=== PATIENT | female | born 1955 | race Caucasian/White ===

== ENCOUNTER → 2016-12-01 | Outpatient (CLI) | payer BC ==
[~2016-12-01] MED LIST: ASPI81TA85 PO; BETA10003 PO; CALTTAB5 PO; CVS20TAB PO; GLUC1CAP9 PO; HYDR25TAB PO; IBUP-1022 PO; ISOVUE-370 76% 100ML VIAL (Q9967) As Ordered ONE; LEVO137T2 PO; LISI-538 PO; MOME50SP; MONT10TA2 PO; MULTTAB PO; NATU400T PO; OMEG100011 PO; SUCR1TA PO; VALT1TAB PO; VESI10TA2 PO
--- NOTE | 2016-12-01 14:37 | REP ---
CT NECK WITHOUT AND WITH CONTRAST: HISTORY: Neck swelling. CONTRAST: Isovue 370, 75 mL. The naso-, jose cruz-, and hypopharynx, larynx and subglottic trachea are normal in appearance. The salivary and thyroid glands are normal in size and density. Small lymph nodes less than 1 cm in size are present in the internal jugular chains, posterior triangles, submandibular and submental areas. Atherosclerotic calcification is present at the left carotid bifurcation. Degenerative change is present in the cervical spine. A congenital block vertebra is present at the C2-3 level. The lung apices are clear. The visualized sinuses are clear. IMPRESSION: There is no neck mass or adenopathy. Signed by Richard Sepulveda MD 12/01/2016 02:39 P
== END ==
LOC: M RAD 13:42
PROVIDERS: ATTEND Otolaryngology
DX: R22.0 Localized swelling, mass and lump, head (principal)
CPT/HCPCS: 70492; Q9967

== ENCOUNTER → 2017-08-09 | Outpatient (CLI) | payer BC | LOC: M RAD 09:05 | DX: Z12.31 Encounter for screening mammogram for malignant neoplasm of breast (principal); Z78.0 Asymptomatic menopausal state; Z92.0 Personal history of contraception | CPT/HCPCS: 77067 ==

== ENCOUNTER → 2018-10-01 | Outpatient (CLI) | payer BC ==
[~2018-10-01] MED LIST changes: -CVS20TAB PO; -ISOVUE-370 76% 100ML VIAL (Q9967) As Ordered ONE; +OMEP20TA9 PO
--- NOTE | 2018-10-01 10:17 | REP ---
BILATERAL SCREENING DIGITAL MAMMOGRAM WITH 3D TOMOSYNTHESIS: There are no palpable abnormalities or other breast complaints. The the patient states she had a clinical breast examination September/2018. The Tyrer-Cuzick Score is: 5.6% . Comparisons are 12/05/2013 and 08/09/2017. There are scattered areas of fibroglandular density. There is no dominant mass, micro calcific cluster or architectural distortion that would indicate malignancy. There are no additional findings on 3D tomosynthesiss. There is no change from the prior study. Impression: BIRADS/ACR category 1 mammogram. Negative. Recommendation: Routine annual screening mammography. This mammogram was interpreted with the aid of a FDA approved computer-aided detection system. A. Negative mammogram reports should not delay biopsy if a dominant or clinically suspicious mass is present. B. Not all breast cancers are identified by mammography or tomosynthesis. C. Adenosis and dense breasts may obscure an underlying neoplasm. Patient letter M1. Electronically Signed by Michael Seo MD 10/01/2018 10:09 A
== END ==
LOC: M RAD 08:31
DX: Z12.31 Encounter for screening mammogram for malignant neoplasm of breast (principal)

== ENCOUNTER → 2019-10-15 | Outpatient (CLI) | payer BC ==
[~2019-10-15] MED LIST changes: -ASPI81TA85 PO; +ASPI81TA86 PO; -MONT10TA2 PO; +MONT10TA4 PO
--- NOTE | 2019-10-31 11:46 | REPMRS ---
Patient History The patient states she had a clinical breast exam in 10/2019. Patient is postmenopausal. Family history of unknown cancer in paternal uncle. Took hormonal contraceptives for 10 years. Digital Woman Screen Mammo: October 15, 2019 - Exam #: [id number] Bilateral CC and MLO view(s) were taken. Technologist: Laura Ferraro, Technologist Prior study comparison: October 01, 2018, bilateral digital mammo screening bilat, performed at [facility]. August 09, 2017, bilateral digital mammo screening bilat, performed at [facility]. February 23, 2016, bilateral digital mammo screening bilat, performed at [facility]. FINDINGS: The breast tissue is almost entirely fat. There has been no change in the appearance of the mammogram from the prior studies. There is no interval development of dominant mass, architectural distortion, or grouped microcalcification typical of malignancy. 3-D tomosynthesis shows no additional findings. Report was delayed due to a protracted computer network disruption experienced by this facility. Assessment: BI-RADS/ACR category 1 mammogram. Negative Mammogram. Recommendation Routine screening mammogram of both breasts in 1 year (for women over age 40). This patient's Lifetime Breast Cancer RIsk is estimated at 5.3 %. This mammogram was interpreted with the aid of an FDA-approved computer-aided dectection system. Electronically Signed By: Gokul Fair MD 10/31/19 [id number]
--- NOTE | 2019-11-25 15:02 | DEXA ---
AP SPINE L1 - L4 1.394 1.8 3.4 LT FEMUR TOTAL 0.868 -1.1 0.1 LT NECK 0.846 -1.7 0.1 RT FEMUR TOTAL 0.874 -1.1 0.1 RT NECK 0.733 -2.2 -0.7 TOTAL BODY TOTAL OTHER COMMENTS: Normal bone densitometry of the spine. There is low bone density of the hips. The increased density of the spine does represent significant change. The decreased density of the left hip does represent a significant change. The decreased density of the right hip does represent a significant change. The density of the spine has increased 13.7% since the initial exam on 10/30/2007. The increased 10.8% since the most recent exam on 11/26/2013. The density of the left hip has decreased 22.6% since the initial exam on 10/30/2007. The density of the left hip has decreased 17.6% since the most recent exam on 11/22/2013. The density of the right hip has decreased 13.8% since the initial exam on 10/30/2007. The density of the right hip has decreased 12.8% since the most recent exam on 11/22/2013. FOLLOW-UP: Recommendation for the next bone density exam: 2 years. JACKELIN
== END ==
LOC: M WHC 16:59
PROVIDERS: ATTEND Nurse Practitioner Adult Health
DX: Z12.31 Encounter for screening mammogram for malignant neoplasm of breast (principal); M85.851 Other specified disorders of bone density and structure, right thigh; M85.852 Other specified disorders of bone density and structure, left thigh; Z78.0 Asymptomatic menopausal state

== ENCOUNTER → 2020-11-03 | Outpatient (CLI) | payer BC ==
[~2020-11-03] MED LIST changes: +HYDR-3490 PO; -HYDR25TAB PO; -LISI-538 PO; +LISI20TA33 PO; +MONT10TA10 PO; -MONT10TA4 PO; +OMEP20TA2 PO; -OMEP20TA9 PO
--- NOTE | 2020-11-03 10:04 | REPMRS ---
Patient History The patient states she has not had a clinical breast exam in over a year. Family history of unknown cancer in paternal uncle. Took hormonal contraceptives for 10 years. No breast complaints today Patient signed the MRS sheet 1st covid vaccine 04/08/20-right arm-Moderna 2nd covid vaccine 05/04/20-right arm Patient states she has gained at least 20lbs in the last year Priors on PACS Patient Identification Verified Digital Woman Screen Mammo: November 03, 2020 - Exam #: [id number] Bilateral CC and MLO view(s) were taken. Technologist: Laura Ferraro Technologist Prior study comparison: October 15, 2019, bilateral digital woman screen mammo performed at [facility]. October 01, 2018, bilateral digital mammo screening bilat, performed at [facility]. August 09, 2017, bilateral digital mammo screening bilat, performed at [facility]. FINDINGS: The breast tissue is almost entirely fat. The Volpara volumetric breast density category is: A. There has been no change in the appearance of the mammogram from the prior studies. There is no interval development of dominant mass, architectural distortion, or grouped microcalcification typical of malignancy. 3-D tomosynthesis shows no additional findings. Assessment: BI-RADS/ACR category 1 mammogram. Negative Mammogram. Recommendation Routine screening mammogram of both breasts in 1 year (for women over age 40). This patient's [facility] Lifetime Breast Cancer RIsk is estimated at 5.1 %. This mammogram was interpreted with the aid of an FDA-approved computer-aided dectection system. Electronically Signed By: Gokul Fair MD 11/03/20 1001
== END ==
LOC: M WHC 09:17
DX: Z12.31 Encounter for screening mammogram for malignant neoplasm of breast (principal)

== ENCOUNTER → 2021-07-20 | Outpatient (CLI) | payer BC ==
[~2021-07-20] MED LIST changes: +BIOT1CAP2 PO; +C-251TAB PO; +CALTCHW4 PO; +CYMB60CA4 PO; +ECOT81TA5 PO; +HYDR200T3 PO; +METF-839 PO; -MOME50SP; -MONT10TA10 PO; +MONT10TA97 PO; +NABU-73 PO; +NASO50SP3; +VITMTA PO
== END ==
LOC: M LABSMTC 09:10
PROVIDERS: ATTEND Anesthesiology
DX: Z01.818 Encounter for other preprocedural examination (principal); Z11.52 Encounter for screening for COVID-19

== ENCOUNTER → 2021-10-30 | Outpatient (CLI) | payer BC | LOC: M LABSMTC 09:35 | PROVIDERS: ATTEND Anesthesiology | DX: Z01.812 Encounter for preprocedural laboratory examination (principal) ==

== ENCOUNTER 2021-11-02 07:08 | Day surgery (SDC) | payer BC ==
[~2021-11-02] VITALS: Ht 154.9 cm; Wt 95.2 kg
[~2021-11-02 07:08] MED LIST changes: +LIDOCAINE 2% 100MG/5ML SDV (FOR ANES.) As Ordered ONE; +NS 1,000 ML IV ONE; +propofoL 200 MG/20 ML VIAL As Ordered ONE
[2021-11-02] MEDS ORDERED: fentaNYL 100 MCG/2 ML INJECTION As Ordered ONE (08:24)
[2021-11-02 09:15] VITALS: BP 121/65
== END 2021-11-02 09:20 | disposition home or self-care (01) ==
LOC: M OPP 07:08
PROVIDERS: ATTEND Internal Medicine Gastroenterology
DX: Z12.11 Encounter for screening for malignant neoplasm of colon (principal); Z86.010 Personal history of colon polyps; D12.6 Benign neoplasm of colon, unspecified; K64.0 First degree hemorrhoids; K44.9 Diaphragmatic hernia without obstruction or gangrene; R12 Heartburn; I10 Essential (primary) hypertension; E03.9 Hypothyroidism, unspecified; Z79.1 Long term (current) use of non-steroidal anti-inflammatories (NSAID); Z79.82 Long term (current) use of aspirin; Z79.84 Long term (current) use of oral hypoglycemic drugs; Z79.899 Other long term (current) drug therapy; Z90.09 Acquired absence of other part of head and neck
CPT/HCPCS: 43239; 45385; 88305; J3010

== ENCOUNTER → 2021-11-10 | Outpatient (CLI) | payer BC ==
[~2021-11-10] MED LIST changes: -LIDOCAINE 2% 100MG/5ML SDV (FOR ANES.) As Ordered ONE; -NS 1,000 ML IV ONE; -propofoL 200 MG/20 ML VIAL As Ordered ONE
== END ==
LOC: M WHC 09:52
PROVIDERS: ATTEND Obstetrics & Gynecology
DX: Z12.31 Encounter for screening mammogram for malignant neoplasm of breast (principal)

== ENCOUNTER → 2023-02-07 | Outpatient (CLI) | payer BC ==
[~2023-02-07] MED LIST changes: -HYDR200T3 PO; +HYDR200T46 PO
== END ==
LOC: M WHC 08:30
PROVIDERS: ATTEND Obstetrics & Gynecology
DX: Z12.31 Encounter for screening mammogram for malignant neoplasm of breast (principal)

== ENCOUNTER → 2024-02-21 | Outpatient (CLI) | payer BC ==
[~2024-02-21] MED LIST changes: +OMEP-611 PO; -OMEP20TA2 PO
== END ==
LOC: M WHC 10:26
PROVIDERS: ATTEND Student in an Organized Health Care Education/Training Program
DX: Z12.31 Encounter for screening mammogram for malignant neoplasm of breast (principal)

== ENCOUNTER → 2025-02-24 | Outpatient (CLI) | payer BC ==
[~2025-02-24] MED LIST changes: -C-251TAB PO; -IBUP-1022 PO; +IBUP600T42 PO; +VITA250T28 PO
== END ==
LOC: M WHC 12:43
PROVIDERS: ATTEND Student in an Organized Health Care Education/Training Program
DX: Z12.31 Encounter for screening mammogram for malignant neoplasm of breast (principal); R92.313 Mammographic fatty tissue density, bilateral breasts